=== PATIENT | male | born 1990 | race African-American/Black ===

== ENCOUNTER 2022-02-19 15:16 | Emergency (ER) | payer SELFPAY ==
[2022-02-19] MEDS ORDERED: Morphine 4 MG/ML VIAL IVPUSH ONE (16:53)
[2022-02-19 17:24] LABS: CARBON DIOXIDE,CO2 28.7 mmol/L (21.0-32.0); POTASSIUM,K 4.1 mmol/L (3.5-5.1)
[2022-02-19] MEDS ORDERED: Iopamidol 755 MG/ML 500 ML Multipack Bottle IVPUSH STA (18:11)
[2022-02-19] MEDS ORDERED: Lidocaine 5% 700 MG Patch TRDERM ONE (18:36)
== END 2022-02-19 18:57 | disposition home or self-care (01) ==
LOC: MW.ED 15:16
DX: R10.12 Left upper quadrant pain (principal); R07.89 Other chest pain
CPT/HCPCS: 36415; 71275; 80053; 83690; 85025; 86308; 96374; 99285; A9270; J2270; Q9967; 99284